=== PATIENT | female | born 1940 | race Caucasian/White ===

== ENCOUNTER 2016-08-06 16:41 | Emergency (ER) | payer MEDICARE ==
[2016-08-06 16:53] VITALS: RESP 18; TEMP 98.3
--- NOTE | 2016-08-06 17:25 | ED ---
General Adult HPI - General Chief complaint: Recheck/Abnormal Lab/Rx Stated complaint: Hypertension Time Seen by Provider: 08/06/16 16:47 Source: EMS, RN notes reviewed, old records reviewed Mode of arrival: EMS Limitations: no limitations - History of Present Illness Initial comments: This is a 76-year-old female ER for evaluation based patient is a for evaluation of eye episode of arm discomfort left chest discomfort and dizziness. This epidural playing cards today. Patient has no significant heart disease but does have history of elevated blood pressure. Patient's blood pressures morning and noted to be elevated which did concern her. But not greatly, she did play cards and had this episode of blurry vision and dizziness that resolved. Patient's R family doctor who then probably 7 to emergency room for further evaluation and treatment of her symptoms. Patient currently denies any complaints this time no chest pain or shortness of breath and no headache. This blurry vision is resolved and she is no longer nauseous or dizzy - Related Data Home Medications Medication Instructions Recorded Confirmed Aspirin 81 mg PO DAILY 08/06/16 08/06/16 Atenolol [Tenormin] 25 mg PO DAILY 08/06/16 08/06/16 Atorvastatin Calcium [Lipitor] 40 mg PO HS 08/06/16 08/06/16 Calcium Carbonate [Calcium] 600 mg PO BID 08/06/16 08/06/16 Dorzolamide/Timolol/Pf [Cosopt Pf 1 applicator BOTH EYES 08/06/16 2%/5% Ophth Droperette] Fish Oil/Dha/Epa [Fish Oil 1,200 1 cap PO DAILY 08/06/16 08/06/16 mg Fish Oil] Glucosam/Chond/Hyalu/Cf Borate 1 tab PO DAILY 08/06/16 08/06/16 [Move Free Joint Aniways Tablet] Latanoprost Ophth [Xalatan 0.005%] 1 drops BOTH EYES HS 08/06/16 08/06/16 Loratadine [Claritin] 10 mg PO DAILY PRN 08/06/16 08/06/16 Meloxicam [Mobic] 7.5 mg PO BID 08/06/16 08/06/16 Moexipril/Hydrochlorothiazide 1 tab PO DAILY 08/06/16 08/06/16 [Uniretic 15-12.5 mg Tab] Multivitamins, Thera [Multivitamin] 1 tab PO DAILY 08/06/16 08/06/16 amLODIPine [Norvasc] 5 mg PO DAILY 08/06/16 08/06/16 Allergies Allergy/AdvReac Type Severity Reaction Status Date / Time amoxicillin Allergy Rash/Hives Verified 08/06/16 17:14 Penicillins Allergy Rash/Hives Verified 08/06/16 16:53 Sulfa (Sulfonamide Allergy Rash/Hives Verified 08/06/16 17:14 Antibiotics) Review of Systems ROS Statement: Those systems with pertinent positive or pertinent negative responses have been documented in the HPI. ROS Other: All systems not noted in ROS Statement are negative. Past Medical History Past Medical History: Hypertension History of Any Multi-Drug Resistant Organisms: None Reported Past Surgical History: Orthopedic Surgery Past Psychological History: No Psychological Hx Reported Smoking Status: Never smoker Past Alcohol Use History: None Reported Past Drug Use History: None Reported General Exam Limitations: no limitations General appearance: alert, in no apparent distress Head exam: Present: atraumatic, normocephalic, normal inspection Eye exam: Present: normal appearance, PERRL, EOMI. Absent: scleral icterus, conjunctival injection, periorbital swelling ENT exam: Present: normal exam, mucous membranes moist Neck exam: Present: normal inspection. Absent: tenderness, meningismus, lymphadenopathy Respiratory exam: Present: normal lung sounds bilaterally. Absent: respiratory distress, wheezes, rales, rhonchi, stridor Cardiovascular Exam: Present: regular rate, normal rhythm, normal heart sounds. Absent: systolic murmur, diastolic murmur, rubs, gallop, clicks GI/Abdominal exam: Present: soft, normal bowel sounds. Absent: distended, tenderness, guarding, rebound, rigid Extremities exam: Present: normal inspection, full ROM, normal capillary refill. Absent: tenderness, pedal edema, joint swelling, calf tenderness Back exam: Present: normal inspection Neurological exam: Present: alert, oriented X3, CN II-XII intact Psychiatric exam: Present: normal affect, normal mood Skin exam: Present: warm, dry, intact, normal color. Absent: rash Course Vital Signs 08/06/16 08/06/16 16:44 17:21 Temperature 98.3 F Pulse Rate 78 Respiratory 18 Rate Blood Pressure 159/102 168/72 O2 Sat by Pulse 95 Oximetry - Reevaluation(s) Reevaluation #1: 08/06/16 17:23 Patient remains asystematic and without complaint EKG Findings - EKG Comments: EKG Findings:: EKG shows normal sinus rhythm rate of 70, CT 186, QRS 76, QTC 455 Medical Decision Making - Medical Decision Making 76 year for evaluation of nonspecific symptoms, elevated blood pressure and dizziness. There resolved remain resolved, patient EKG and troponin are negative, patient states she still continues without complaints, blood pressures improved to patient can be discharged home - Radiology Data Radiology results: report reviewed (Chest x-ray is negative for acute disease), image reviewed Disposition Clinical Impression: Dizziness, Hypertension Disposition: HOME SELF-CARE Condition: Good Instructions: Dizziness (ED) Referrals: Latricia Tovar MD [Primary Care Provider] - 1-2 days
[2016-08-06 17:50] LABS: Basophils % (A) 1 %; CH 32.1; CHCM 34.1; Eosinophils # (A) 0.4 k/uL (0-0.7); Eosinophils % (A) 5 %; HCT 45.5 % (34.0-46.0); HDW 2.57; HGB 14.9 gm/dL (11.4-16.0); Luc # (Auto) 0.16; Luc % (Auto) 2; Lymphocytes # (A) 3.2 k/uL (1.0-4.8); Lymphocytes % (A) 40 %; MCH 31.1 pg (25.0-35.0); MCHC 32.8 g/dL (31.0-37.0); MCV 94.6 fL (80.0-100.0); Mean Platelet Volume 7.6; Monocytes # (A) 0.5 k/uL (0-1.0); Monocytes % (A) 6 %; Neutrophils # (A) 3.8 k/uL (1.3-7.7); Neutrophils % (A) 47 %; RBC 4.81 m/uL (3.80-5.40); RDW 12.6 % (11.5-15.5); WBC (Perox) 7.88
--- NOTE | 2016-08-06 17:52 | XR ---
EXAMINATION TYPE: XR chest 2V DATE OF EXAM: 08/06/2016 5:47 PM COMPARISON: 10/23/2012 HISTORY: Hypertension TECHNIQUE: Frontal and lateral views of the chest are obtained. FINDINGS: Heart is normal. Lungs are clear of consolidation. There are no hilar masses. There are ch est leads. There is no sign of pleural effusion. There is a small linear density in the lingula left upper lobe. IMPRESSION: Minimal scarring in the lingula of the left upper lobe. No acute lung disease. Normal he art. No change.
[2016-08-06 17:59] LABS: Partial Thromboplastin Time 22.4 sec (22.0-30.0); Prothrombin Time 10.3 sec (9.0-12.0)
[2016-08-06 18:03] LABS: Creatine Kinase 181 U/L (30-135)
[2016-08-06 18:05] LABS: Calcium 9.8 mg/dL (8.4-10.2); Magnesium 1.9 mg/dL (1.6-2.3); Potassium 3.9 mmol/L (3.5-5.1); Total Bilirubin 0.6 mg/dL (0.2-1.3); Total Protein 7.2 g/dL (6.3-8.2)
[2016-08-06] MEDS ORDERED: SODIUM CHLORIDE 0.9% 500 ML IV STA (18:14)
[2016-08-06 18:15] LABS: Creatine Kinase MB 1.8 ng/mL (0.0-2.4); Troponin I <0.012 ng/mL (0.000-0.034)
[2016-08-06 18:16] VITALS: PULSE 68
[2016-08-06 18:59] VITALS: BP 146/67
== END 2016-08-06 19:03 | disposition home or self-care (01) ==
LOC: EC 16:41
DX: R42 Dizziness and giddiness (principal); I10 Essential (primary) hypertension; R07.89 Other chest pain; Z79.82 Long term (current) use of aspirin; Z79.899 Other long term (current) drug therapy; Z88.0 Allergy status to penicillin; Z88.2 Allergy status to sulfonamides
CPT/HCPCS: 36415; 71020; 80053; 82550; 82553; 83690; 83735; 84484; 85025; 85610; 85730; 93005; 96360; 99285

== ENCOUNTER → 2017-01-22 | Outpatient (CLI) | payer MEDICARE ==
--- NOTE | 2017-01-23 08:12 | MM ---
Reason for exam: screening (asymptomatic). Last mammogram was performed 1 year ago. History: Patient is postmenopausal. Took hormonal contraceptives beginning at age 32. Took estrogen beginning at age 53. Physical Findings: A clinical breast exam by your physician is recommended on an annual basis and results should be correlated with mammographic findings. MG 3D Screening Mammo W/Cad Bilateral CC and MLO view(s) were taken. Prior study comparison: January 08, 2016, bilateral MG 3d screening mammo w/cad. January 16, 2015, left breast MG work up mamm w CAD LT. The breast tissue is heterogeneously dense. This may lower the sensitivity of mammography. Finding: There are typically benign vascular, round calcifications in both breasts. There is a chronic nodularity in the left breast. There is no discrete abnormality. ASSESSMENT: Benign, BI-RAD 2 RECOMMENDATION: Routine screening mammogram of both breasts in 1 year.
== END | disposition home or self-care (01) ==
LOC: RADMAMWWP 15:12
PROVIDERS: ATTEND Internal Medicine
DX: Z12.31 Encounter for screening mammogram for malignant neoplasm of breast (principal)
CPT/HCPCS: 77063; G0202

== ENCOUNTER → 2017-03-18 | Outpatient (CLI) | payer MEDICARE ==
--- NOTE | 2017-03-18 16:33 | CONS ---
CONSULTATION REASON FOR CONSULTATION: Sleep apnea. REFERRING PHYSICIAN: Dr. Mai. PRIMARY CARE PHYSICIAN: Dr. Tovar. This is a 76-year-old female patient who was referred for a sleep apnea evaluation. The patient has been having excessive fatigue and some degree of sleepiness with an Delta score of 9. She reports her sleep quality to be poor and she wakes up at least 4 to 5 times in the middle of the night. She goes to bed around midnight and she wakes up at 9:00 in the morning. She sleeps more than 8 hours per night; however, she wakes up non-refreshed during the day. She is driving a car. She has not fallen asleep while driving, although this is a concern. On one occasion the patient felt foggy and dizzy, and she had a complete cardiac evaluation and was not found to have any significant abnormalities. Based on this, sleep apnea was suspected. The patient denies having to wake up in the middle of the night gasping for air. No restlessness in the lower extremities. No sleepwalking or sleeptalking. She wakes up with a dry mouth. She prefers to sleep on her side. She is a nose-breather. No environmental allergies. PAST MEDICAL HISTORY: 1. Obesity. 2. Hypertension. 3. Hyperlipidemia. 4. Glaucoma. PAST SURGICAL HISTORY: Past surgical history includes: 1. Right hip hemiarthroplasty. 2. Cataract surgery. ALLERGIES: PENICILLINS. OUTPATIENT MEDICATION LIST: Outpatient medication list includes: 1. Atenolol 25 mg p.o. daily. 2. Norvasc 5 mg p.o. daily. 3. Meloxicam 7.5 mg twice a day. 4. Moexipril/hydrochlorothiazide 15/12.5 one tablet daily. 5. Lipitor 80 mg p.o. daily. 6. Latanoprost eye drops. 7. Dorzolamide eye drops. 8. Loratadine 10 mg p.o. daily. 9. Calcium. 10.Glucosamine chondroitin. SOCIAL HISTORY: The patient is nonsmoker. No history of alcoholism. No history of IV drugs. FAMILY HISTORY: Positive for obstructive sleep apnea in her brother and her son. REVIEW OF SYSTEMS: Twelve-point review of systems was done. Constitutional is negative for recent weight gain or weight loss. No fever, chills or night sweats. HEENT: Loud snoring. No clear evidence of any witnessed apneas. No hearing deficits. She receives eye drops for glaucoma. CARDIAC: No angina. No palpitations. No chest pain. PULMONARY: Negative for dyspnea, cough, sputum production, chest tightness or wheezing. GI: Negative nausea, vomiting, abdominal pain or GI bleed. is negative for dysuria, frequency, urgency. MUSCULOSKELETAL: Negative for arthritic pain or deformities. Skin is negative for rash. Neuro is negative for any strokes, seizures or seizure-like activity. Rheumatologic is negative for chronic ( ) disease. Endocrinologic is negative for any diabetes mellitus or any other hormonal imbalance. PHYSICAL EXAMINATION: HER CURRENT VITALS: BP is 140/71, pulse 75, respiratory rate 16, temperature 97.6, saturation 96% on room air. Delta score 10. BMI is 42.5, next size 16-1/2 inches. Weight is 225.6. Height is 6 (). GENERAL APPEARANCE: Obese, calm, comfortable. HEENT: Mallampati class 4. Head is atraumatic, normocephalic. NECK: Supple. No JVD. No goiter or neck masses. LUNGS: Clear to auscultation. HEART: Sounds are regular rate and rhythm. Normal S1, S2. No S3. No S4. No murmurs. ABDOMEN: Soft, nontender. No organomegaly. EXTREMITIES: No edema. No cyanosis or clubbing. Skin is negative for any rash, ulcers or wounds. NEURO: Oriented x3. There are no focal neurological deficits. SKELETAL: No injuries or joint deformities or active arthritis. IMPRESSION: 1. Chronic fatigue and sleepiness with an Delta score of 9. Rule out underlying obstructive sleep apnea. 2. Loud snoring. 3. Questionable witnessed apneas. 4. Hypertension. 5. Obesity with a BMI 42.5. 6. Hyperlipidemia. 7. Glaucoma. 8. Hypertension. PLAN: 1. Proceed with a screening polysomnogram. 2. Encouraged to sleep in a sidewise body position. 3. Avoid driving, especially when feeling drowsy or sleepy. 4. Implement good sleep hygiene measures. 5. We will continue to follow and make further recommendations based on the results of the sleep study. MMODL / IJN: [id number] /
== END | disposition home or self-care (01) ==
LOC: SLEEP 13:54
PROVIDERS: ATTEND Internal Medicine Critical Care Medicine
DX: R53.82 Chronic fatigue, unspecified (principal); R06.83 Snoring; I10 Essential (primary) hypertension; E66.9 Obesity, unspecified; E78.5 Hyperlipidemia, unspecified; H40.9 Unspecified glaucoma; Z68.41 Body mass index [BMI] 40.0-44.9, adult; Z88.0 Allergy status to penicillin
CPT/HCPCS: 99211

== ENCOUNTER → 2017-08-05 | Outpatient (CLI) | payer MEDICARE ==
--- NOTE | 2017-08-05 18:18 | PN ---
PROGRESS NOTE This is a pleasant 77-year-old female patient with diagnosis of obstructive sleep apnea coming in for a compliancy check. The patient had sleep fragmentation, chronic fatigue and sleepiness. She was found to have an AHI of 11, worse during REM. She was given CPAP at a pressure of 10 cm of water. On today's evaluation, the patient is coming in for a compliancy check. She is doing very well. She has improved and her sleep quality is also improved and she is benefitting from the treatment. She has no specific complaints. Her CPAP compliancy data indicate adequate use with a CPAP use of 6.8 hours per night and an AHI down to 5. She is using the CPAP for more than 4 hours more than 90% of the time. She is using an AirFit P10 nose pillow. No leaks around the mask and her leak factor is minimal at this point. She has no other complaints otherwise. REVIEW OF SYSTEMS: Twelve-point review of systems was done. No recent weight gain or weight loss. No headache. No sinus disease. She is a nose breather. No sore throat. No respiratory difficulties. No cough or sputum production, tightness or wheezing. No chest pain or angina. No palpitations. No nausea, vomiting, diarrhea or abdominal pain. No dysuria, frequency or urgency. No bony aches or pains. No wounds or sores. No headaches. No seizures. No focal neurological deficits. No change in mental status. No anxiety or depression. PHYSICAL EXAMINATION: BP is 145/76, pulse 76, respirations 16, temperature 97.1. Weight is 221. [place] score is 7. Saturation 94% on room air. GENERAL APPEARANCE: Calm, comfortable. Head is atraumatic, normocephalic. NECK: Supple. There is no JVD. No goiter or neck masses. Mallampati class IV. LUNGS: Clear to auscultation. HEART: Sounds are regular rate and rhythm. Normal S1, S2. No S3, S4. No murmurs. ABDOMEN: Soft, nontender. No organomegaly. EXTREMITIES: No edema. No cyanosis or clubbing. SKIN: Negative for wounds or ulcers. NEUROLOGIC: Alert and oriented x3. No focal neurological deficits. PSYCHIATRIC: Negative for anxiety or depression. IMPRESSION: 1. Symptomatic obstructive sleep apnea with an AHI of 11, currently receiving CPAP therapy at a pressure of 10, and the treatment is successful. 2. Chronic hypersomnia, improved with CPAP therapy. 3. Sleep fragmentation, improved with CPAP therapy. 4. Hypertension. 5. Hyperlipidemia. 6. Glaucoma. PLAN: 1. Increase the humidity level up to 4. 2. Provide the patient needed tubing. 3. Reviewed the compliance data and values are all good. 4. Patient is benefitting from the treatment. She will continue with her primary care physician and Cardiology and see me in a year's time in follow up, earlier if needed. MMODL / IJN: [id number] /
== END | disposition home or self-care (01) ==
LOC: SLEEP 16:47
PROVIDERS: ATTEND Internal Medicine Critical Care Medicine
DX: G47.33 Obstructive sleep apnea (adult) (pediatric) (principal); I10 Essential (primary) hypertension; E78.5 Hyperlipidemia, unspecified; H40.9 Unspecified glaucoma; Z99.89 Dependence on other enabling machines and devices

== ENCOUNTER → 2018-01-26 | Outpatient (CLI) | payer MEDICARE ==
--- NOTE | 2018-01-28 11:55 | MM ---
Reason for exam: screening (asymptomatic). Last mammogram was performed 1 year ago. History: Patient is postmenopausal. Took hormonal contraceptives beginning at age 32. Took estrogen beginning at age 53. Physical Findings: A clinical breast exam by your physician is recommended on an annual basis and results should be correlated with mammographic findings. MG 3D Screening Mammo W/Cad Bilateral CC and MLO view(s) were taken. Prior study comparison: January 22, 2017, bilateral MG 3d screening mammo w/cad. January 08, 2016, bilateral MG 3d screening mammo w/cad. The breast tissue is heterogeneously dense. This may lower the sensitivity of mammography. There is chronic nodularity in the left breast. Benign secretory and vascular calcifications. No significant changes when compared with prior studies. ASSESSMENT: Benign, BI-RAD 2 RECOMMENDATION: Routine screening mammogram of both breasts in 1 year.
== END | disposition home or self-care (01) ==
LOC: RADMAMWWP 12:52
PROVIDERS: ATTEND Internal Medicine
DX: Z12.31 Encounter for screening mammogram for malignant neoplasm of breast (principal)
CPT/HCPCS: 77063; 77067

== ENCOUNTER → 2018-01-26 | Outpatient (CLI) | payer MEDICARE ==
[2018-01-26 14:16] LABS: Ionized Calcium 5.5 mg/dL (4.5-5.3)
[2018-01-26 14:18] LABS: Bilirubin, Delta 0.2 mg/dL (0.0-0.2); Bilirubin,Unconjugated 0.2 mg/dL (0.0-1.1); Total Bilirubin 0.4 mg/dL (0.2-1.3); Total Protein 6.6 g/dL (6.3-8.2)
[2018-01-26 18:33] LABS: Vitamin D 25 Hydroxy 38.7 ng/mL (30.0-100.0)
[2018-01-26 19:32] LABS: Parathyroid Hormone Intact 29.8 pg/mL (14.0-72.0)
[2018-01-26 19:33] LABS: Hepatitis C IgG Antibody Non-Reactive (Non-Reactive)
[2018-01-26 21:24] LABS: Hemoglobin A1C 6.2 % (4.0-6.0)
== END | disposition home or self-care (01) ==
LOC: LABWHC1 13:15
PROVIDERS: ATTEND Internal Medicine
DX: E83.52 Hypercalcemia (principal)
CPT/HCPCS: 36415; 80076; 82306; 82330; 83036; 83970; 86803

== ENCOUNTER → 2019-02-04 | Outpatient (CLI) | payer MEDICARE ==
--- NOTE | 2019-02-04 14:46 | MM ---
Reason for exam: screening (asymptomatic). Last mammogram was performed 1 year ago. History: Patient is postmenopausal. Took hormonal contraceptives beginning at age 32. Took estrogen beginning at age 53. Physical Findings: A clinical breast exam by your physician is recommended on an annual basis and results should be correlated with mammographic findings. MG 3D Screening Mammo W/Cad Bilateral CC and MLO view(s) were taken. Prior study comparison: January 26, 2018, bilateral MG 3d screening mammo w/cad. January 22, 2017, bilateral MG 3d screening mammo w/cad. The breast tissue is heterogeneously dense. This may lower the sensitivity of mammography. There are benign appearing round linear vascular calcifications bilaterally. There is no discrete abnormality. ASSESSMENT: Benign, BI-RAD 2 RECOMMENDATION: Routine screening mammogram of both breasts in 1 year.
== END | disposition home or self-care (01) ==
LOC: RADMAMWWP 09:47
PROVIDERS: ATTEND Internal Medicine
DX: Z12.31 Encounter for screening mammogram for malignant neoplasm of breast (principal)
CPT/HCPCS: 77063; 77067

== ENCOUNTER → 2020-02-11 | Outpatient (CLI) | payer MEDICARE ==
--- NOTE | 2020-02-15 08:50 | MM ---
Reason for exam: screening (asymptomatic). Last mammogram was performed 1 year ago. History: Patient is postmenopausal. Took hormonal contraceptives beginning at age 32. Took estrogen beginning at age 53. Physical Findings: A clinical breast exam by your physician is recommended on an annual basis and results should be correlated with mammographic findings. MG 3D Screening Mammo W/Cad Bilateral CC and MLO view(s) were taken. Prior study comparison: February 04, 2019, bilateral MG 3d screening mammo w/cad. January 26, 2018, bilateral MG 3d screening mammo w/cad. The breast tissue is heterogeneously dense. This may lower the sensitivity of mammography. There is chronic nodularity in the left breast. Benign bilateral secretory calcifications. No significant changes when compared with prior studies. ASSESSMENT: Benign, BI-RAD 2 RECOMMENDATION: Routine screening mammogram of both breasts in 1 year.
== END | disposition home or self-care (01) ==
LOC: RADMAMWWP 12:26
PROVIDERS: ATTEND Internal Medicine
DX: Z12.31 Encounter for screening mammogram for malignant neoplasm of breast (principal)
CPT/HCPCS: 77063; 77067

== ENCOUNTER → 2021-02-16 | Outpatient (CLI) | payer MEDICARE ==
--- NOTE | 2021-02-20 08:18 | MM ---
Reason for exam: screening (asymptomatic). Last mammogram was performed 1 year ago. History: Patient is postmenopausal. Took hormonal contraceptives beginning at age 32. Took estrogen beginning at age 53. Physical Findings: A clinical breast exam by your physician is recommended on an annual basis and results should be correlated with mammographic findings. MG 3D Screening Mammo W/Cad Bilateral CC and MLO view(s) were taken. Prior study comparison: February 11, 2020, bilateral MG 3d screening mammo w/cad. February 04, 2019, bilateral MG 3d screening mammo w/cad. January 26, 2018, bilateral MG 3d screening mammo w/cad. The breast tissue is heterogeneously dense. This may lower the sensitivity of mammography. There is chronic nodularity in the left breast. Stable benign vascular and secretory calcifications. No significant changes when compared with prior studies. ASSESSMENT: Negative, BI-RAD 1 RECOMMENDATION: Routine screening mammogram of both breasts in 1 year.
== END | disposition home or self-care (01) ==
LOC: RADMAMWWP 14:39
PROVIDERS: ATTEND Internal Medicine
DX: Z12.31 Encounter for screening mammogram for malignant neoplasm of breast (principal)
CPT/HCPCS: 77063; 77067

== ENCOUNTER → 2023-02-21 | Outpatient (CLI) | payer MEDICARE ==
--- NOTE | 2023-02-24 11:39 | MM ---
Reason for Exam: Screening (asymptomatic). Last screening mammogram was performed 12 month(s) ago. Patient History: Menarche at age 14. First Full-Term at age 25. Postmenopausal. Estrogen, from age 53 until age 56. Hormonal Contraceptives, from age 32 until age 53. Risk Values: Allegra 5 year model risk: 1.4%. NCI Lifetime model risk: 2.1%. Prior Study Comparison: 01/22/2017 Bilateral Screening Mammogram, [facility]. 01/26/2018 Bilateral Screening Mammogram, [facility]. 02/04/2019 Bilateral Screening Mammogram, [facility]. 02/11/2020 Bilateral Screening Mammogram, [facility] 02/16/2021 Bilateral Screening Mammogram, [facility]. 02/20/2022 Bilateral MG 3D screening mammo w/cad, [facility]. Tissue Density: The breast tissue is heterogeneously dense. This may lower the sensitivity of mammography. Findings: Analyzed By CAD. There is no suspicious group of microcalcifications or new suspicious mass in either breast. Overall Assessment: Negative, BI-RAD 1 Management: Screening Mammogram of both breasts in [address] [facility] will attempt to contact patient to return for supplemental views and ultrasound if indicated. Patient should continue monthly self-breast exams. A clinical breast exam by your physician is recommended on an annual basis. This exam should not preclude additional follow-up of suspicious palpable abnormalities. Note on Allegra scores and lifetime risk: 1. A Allegra score greater than 3% is considered moderate risk. If this is the case, consider specialist referral to assess eligibility for a risk reducing agent. 2. If overall lifetime risk for the development of breast cancer is 20% or higher, the patient may qualify for future screening with alternating mammogram and breast MRI. Electronically signed and approved by: Olivier Renae DO
== END | disposition home or self-care (01) ==
LOC: RADMAMWWP 09:55
PROVIDERS: ATTEND Internal Medicine
DX: Z12.31 Encounter for screening mammogram for malignant neoplasm of breast (principal); Z78.0 Asymptomatic menopausal state
CPT/HCPCS: 77063; 77067

== ENCOUNTER → 2023-08-25 | Outpatient (CLI) | payer MEDICARE ==
--- NOTE | 2023-08-25 16:57 | BD ---
EXAMINATION TYPE: Axial Bone Density DATE OF EXAM: 08/25/2023 CLINICAL HISTORY: 83 years old Female. ICD-10 CODE: N95.8 OTHER SPECIFIED MENOPAUSAL AND PERIMENOPAU GEORGI Height: 60 Weight: 206 FRAX RISK QUESTIONS: Alcohol (3 or more units per day): no Family History (Parent hip fracture): yes Glucocorticoids (More than 3mos): no (Ex: prednisone, prednisolone, methylprednisolone, dexamethasone, and hydrocortisone). History of Fracture in Adulthood: no Secondary Osteoporosis: 1. Type 1 Diabetes: no 2. Hyperthyroidism: no 3. Menopause before 45: no 4. Malnutrition: no 5. Chronic liver disease: no Rheumatoid Arthritis: no Current Tobacco Use: no RISK FACTORS HISTORY OF: Surgery to Spine/Hip(right/left)/Wrist (right/left): right hip-2008 EXAM MEASUREMENTS: Bone mineral densitometry was performed using the Supersolid System. Bone mineral density as measured about the Lumbar spine is: ----- L1-L4(G/cm2): 1.420 T Score Values are as follows: ----- L1: 0.6 ----- L2: 0.7 ----- L3: 1.9 ----- L4: 4.9 ----- L1-L4: 2.0 Z Score Values are as follows: ----- L1: 1.5 ----- L2: 1.6 ----- L3: 2.8 ----- L4: 5.8 ----- L1-L4: 2.9 Bone mineral density : baseline Bone mineral density about the L hip (g/cm2): 1.085 T Score values are as follows: -----L Neck: -1.0 -----L Total: 0.6 Z Score values are as follows: -----L Neck: 0.6 -----L Total: 2.1 Bone mineral density : baseline FRAX%s: The graph provided illustrates a 17.2% chance for a major osteoporotic fx and a 8.7% chance f or the hips probability for fx in 10 years time. IMPRESSION: Normal (Values between +1 and -1 indicate normal bone mass). Consider repeating this study in 5 year s or sooner if there is some new clinical indication. NOTE: T-SCORE=SD OF THE YOUNG ADULT MEAN.
== END | disposition home or self-care (01) ==
LOC: RADBDWWP 14:21
PROVIDERS: ATTEND Internal Medicine
DX: M85.89 Other specified disorders of bone density and structure, multiple sites (principal); M81.0 Age-related osteoporosis without current pathological fracture; N95.8 Other specified menopausal and perimenopausal disorders
CPT/HCPCS: 77080

== ENCOUNTER → 2023-11-27 | Outpatient (CLI) | payer MEDICARE ==
--- NOTE | 2023-11-27 18:46 | US ---
EXAMINATION TYPE: US transvaginal DATE OF EXAM: 11/27/2023 COMPARISON: NONE CLINICAL INDICATION: Female, 83 years old with history of N95.0 POSTMENOPAUSAL BLEEDING; Pt states li ght vaginal spotting x 2 weeks TECHNIQUE: Transvaginal (TV). Transvaginal sonographic images of the pelvis were acquired. Date of LMP: age 51 EXAM MEASUREMENTS: Uterus: 6.2 x 2.4 x 2.6 cm Endometrial Stripe: 0.7 cm 1. Uterus: Anteverted Heterogeneous with peripheral calcifications 2. Endometrium: Thickened for pt postmenopausal and symptomatic, possible complex area within lower endometrial canal= 1.3 x 0.9 x 1.2 cm 3. Right Ovary: Obscured by overlying bowel gas 4. Left Ovary: Obscured by overlying bowel gas 5. Bilateral Adnexa: wnl 6. Posterior cul-de-sac: wnl IMPRESSION: 1. Mildly thickened endometrium with a slightly more complex area within the lower endometrial canal. Additional workup recommended
== END | disposition home or self-care (01) ==
LOC: RADUSWWP 16:10
PROVIDERS: ATTEND Internal Medicine
DX: R93.89 Abnormal findings on diagnostic imaging of other specified body structures (principal); N95.0 Postmenopausal bleeding
CPT/HCPCS: 76830

== ENCOUNTER → 2023-12-02 | Outpatient (CLI) | payer MEDICARE ==
[2023-12-02 13:46] LABS: African American GFR (CKD) 69 (>60 ml/min/1.73 sqM); Blood Urea Nitrogen 16 mg/dL (7-17); Non-African American GFR(CKD) 60 (>60 ml/min/1.73 sqM)
--- NOTE | 2023-12-03 20:20 | CT ---
EXAMINATION TYPE: CT pelvis w con DATE OF EXAM: 12/02/2023 COMPARISON: None CLINICAL INDICATION: Female, 83 years old with history of N95.8 OTHER MENOPAUSAL PERIMENOPAUSAL DISOR DERS; Technique: Multiple axial images are obtained through the pelvis during the uneventful administration of oral and IV contrast material. FINDINGS: Visualized bowel loops are normal in caliber and there is no dilatation or obstruction. Caliber of th e distal abdominal aorta and iliac vessels are normal and there is no retroperitoneal adenopathy or h emorrhage. There are no pelvic mass, adenopathy, free fluid or abscess. There is a right hip prosthesis. No focal osseous lesions are seen. There is a grade 1 anterolisthesis of L4 and L5 and moderate to marked degenerative disc disease in t he lumbar spine. There is probable moderate to severe spinal stenosis at the L to 3, L3-4 and L4-5 le vels. IMPRESSION: 1. 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 2. Right hip prosthesis. 3. No significant abnormality within the soft tissues of the pelvis.
== END | disposition home or self-care (01) ==
LOC: RADCTMAIN 12:29
PROVIDERS: ATTEND Internal Medicine
DX: M48.061 Spinal stenosis, lumbar region without neurogenic claudication (principal); M51.36 Other intervertebral disc degeneration, lumbar region; N95.8 Other specified menopausal and perimenopausal disorders; Z78.0 Asymptomatic menopausal state; Z96.641 Presence of right artificial hip joint
CPT/HCPCS: 82565; 84520; 72193; 36415; Q9967

== ENCOUNTER → 2023-12-09 | Outpatient (CLI) | payer MEDICARE ==
--- NOTE | 2023-12-12 11:40 | XR ---
EXAMINATION TYPE: XR cervical spine comp DATE OF EXAM: 12/09/2023 4:06 PM CLINICAL INDICATION:Female, 83 years old with history of M542 CERVICALGIA; [facility] COMPARISON: TECHNIQUE: The cervical spine was imaged in frontal, lateral, and bilateral oblique views. FINDINGS: Craniocervical junction and odontoid are not well assessed on these views. Cannot exclude fracture in these areas. There is otherwise mild to moderate multilevel discogenic change in the cervical spine greatest from the C4-C7 levels. Mild facet arthrosis throughout. Trace anterolisthesis C4 on C5 appea rs degenerative. Remote fractures versus ununited ossification centers seen posterior to the spinous process tips in t he lower cervical/upper thoracic region. There are [id number] multilevel neural foraminal stenoses suggested. No appreciable prevertebral soft tissue thickening. If clinical concern persists, CT or MRI may be obtained as indicated for further evaluation. IMPRESSION: 1. No evidence of acute fracture or dislocation. 2. Mild to moderate degenerative disc disease changes of the cervical spine.
== END | disposition home or self-care (01) ==
LOC: RADXRYALE 15:53
PROVIDERS: ATTEND Internal Medicine
DX: M50.30 Other cervical disc degeneration, unspecified cervical region (principal)
CPT/HCPCS: 72050

== ENCOUNTER → 2023-12-25 | Outpatient (CLI) | payer MEDICARE ==
--- NOTE | 2023-12-25 21:04 | MR ---
EXAMINATION TYPE: MR cspine/lspine wo con DATE OF EXAM: 12/25/2023 COMPARISON: Cervical spine x-ray December 09, 2023. Outside lumbar spine x-ray November 06, 2023 HISTORY: Numbness in hands to shoulders x3-4 weeks. Cervicalgia and lumbago. TECHNIQUE: Multiplanar, multisequence imaging of the cervical and lumbar spine are performed without IV contrast. FINDINGS: C-SPINE: Sagittal images of the cervical spine show the craniocervical junction to appear within normal limits . The cervical and upper thoracic spinal cord shows areas of diminished AP diameter most prominent a t C3-C4 level on sagittal image 10. No definitive abnormal cord signal. Slight grade 1 anterolisthes is C4 on C5. The vertebral body heights are normal. Moderate disc space narrowing and spurring at C5 -C6 and C6-C7 levels. The bone marrow signal intensity is within normal limits. Axial images show C2-C3 level to appear within normal limits. Axial images at C3-C4 level shows central disc protrusion effacing anterior thecal sac and causing AP diameter narrowing of the spinal cord along with moderate bilateral neural foraminal narrowing. Axial images at C4-C5 levels show spondylolisthesis with broad-based posterior disc protrusion efface s the anterior thecal sac and uncovertebral facet degenerative changes causing moderate to advanced l eft greater than right bilateral neural foraminal narrowing. Axial images at C5-C6 level showed broad based posterior disc protrusion effaces the anterior thecal sac and causing moderate to advanced bilateral neural foraminal narrowing. Axial images at C6-C7 level showed broad disc bulge with left paracentral disc protrusion component f acing anterior thecal sac and causing advanced bilateral neural foraminal narrowing. Axial images at C7-T1 are nondiagnostic. IMPRESSION: Multilevel fairly advanced degenerative changes in the cervical spine as detailed above. L-SPINE: There is levoconvex scoliosis centered in the lower lumbar spine. There is slight grade 1 retrolisthe sis L2 on L3 and grade 1 anterolisthesis L4 and L5 noted. Sagittal images of the lumbar spine show ve rtebral body heights and to appear satisfactory. Multilevel disc desiccation is seen. There is modera te disc space narrowing and spurring with heterogeneous Modic type II endplate changes at L2-L3 and L 3-L4 levels. There is mild disc space narrowing and vacuum disc phenomenon at L4-L5 level. The conus medullaris is normal in position and signal ending at T12-L1 level. Axial images at T12-L1 level shows mild to moderate facet arthropathy bilaterally left greater than r ight with slight effacement of the left posterior lateral thecal sac. There is mild broad disc bulge. Axial images at L1-L2 level show moderate broad disc bulge with large left sided focal disc herniatio n having superior and inferior extension seen best sagittal image 10. There is advanced left-sided ne ural foraminal narrowing. Axial images at L2-L3 level shows spondylosis with moderate broad disc bulge effaces the anterior the kobi sac. There is moderate facet arthropathy effacing the bilateral lateral thecal sac. There is mil d right and advanced left-sided neural foraminal narrowing. Axial images at L3-L4 level show moderate to advanced broad disc bulge effacing anterior thecal sac. There is moderate to advanced facet arthropathy ligament flavum hypertrophy effacing posterior latera l thecal sac. Significant spinal canal stenosis and asymmetric 13 is noted. There is advanced left an d moderate right-sided neural foraminal narrowing noted. Axial images at L4-L5 level shows spondylosis with moderate to advanced right greater than left facet degenerative change. There is broad-based disc protrusion. There is effacement of the anterior theca l sac. There is moderate left and advanced right-sided neural foraminal narrowing. Axial images at the L5-S1 level show moderate facet arthropathy and ligament hypertrophy. There is fo kobi central disc protrusion. Increased epidural fat at this level is noted. Bilateral neural foramina are patent. IMPRESSION: Scoliosis with multilevel spondylolisthesis and multilevel degenerative change as detaile d above. Large disc herniation L1-L2 level is present. Multilevel bilateral advanced neural foraminal narrowing is seen as detailed above. There is significant spinal canal stenosis at L3-L4 also noted.
== END | disposition home or self-care (01) ==
LOC: RADMRIMAIN 17:20
PROVIDERS: ATTEND Orthopaedic Surgery
DX: M54.16 Radiculopathy, lumbar region (principal); M62.81 Muscle weakness (generalized); M54.2 Cervicalgia; M43.16 Spondylolisthesis, lumbar region; M47.812 Spondylosis without myelopathy or radiculopathy, cervical region; M47.816 Spondylosis without myelopathy or radiculopathy, lumbar region; M47.817 Spondylosis without myelopathy or radiculopathy, lumbosacral region; M48.061 Spinal stenosis, lumbar region without neurogenic claudication; M51.26 Other intervertebral disc displacement, lumbar region; M51.36 Other intervertebral disc degeneration, lumbar region; M41.9 Scoliosis, unspecified
CPT/HCPCS: 72141; 72148

== ENCOUNTER → 2024-01-19 | Outpatient (CLI) | payer MEDICARE ==
[2024-01-19 15:50] LABS: ALT 29 U/L (8-44); AST 28 U/L (13-35); Albumin 4.3 g/dL (3.8-4.9); Albumin/Globulin Ratio 1.43 Ratio (1.60-3.17); Alkaline Phosphatase 98 U/L (41-126); BUN/Creat Ratio 15.44 Ratio (12.00-20.00); Blood Urea Nitrogen 13.9 mg/dL (9.0-27.0); Calcium 10.6 mg/dL (8.7-10.3); Carbon Dioxide 27.9 mmol/L (21.6-31.8); Chloride 103 mmol/L (96-109); Glucose 123 mg/dL (70-110); Potassium 3.7 mmol/L (3.5-5.5); Sodium 144 mmol/L (135-145); Total Bilirubin 0.7 mg/dL (0.3-1.2); Total Protein 7.3 g/dL (6.2-8.2)
[2024-01-19 19:04] LABS: HCT 51.8 % (37.2-46.3); HGB 16.5 g/dL (12.0-15.0); MCH 30.6 pg (27.0-32.0); MCHC 31.9 g/dL (32.0-37.0); MCV 96.1 FL (80.0-97.0); Mean Platelet Volume 11.1 FL (9.5-12.2); NRBC Per 100 WBC 0 X 10*3/uL (0.00-0.01); Platelet Count 232 X 10*3/uL (140-440); RBC 5.39 X 10*6/uL (4.10-5.20); RDW 13.6 % (11.5-14.5)
[2024-01-19 19:09] LABS: INR 1.04 sec (0.93-1.11); Prothrombin Time 11.2 sec (9.9-11.9)
== END | disposition home or self-care (01) ==
LOC: LABPAT 11:29
PROVIDERS: ATTEND Orthopaedic Surgery
DX: Z01.812 Encounter for preprocedural laboratory examination (principal); M47.12 Other spondylosis with myelopathy, cervical region; Z79.01 Long term (current) use of anticoagulants; Z79.899 Other long term (current) drug therapy
CPT/HCPCS: 80053; 85027; 85610

== ENCOUNTER → 2024-02-03 | Outpatient (CLI) | payer MEDICARE ==
--- NOTE | 2024-03-05 13:40 | CT ---
EXAM: CT cervical spine without contrast. DATE OF EXAM: 02/03/24 INDICATION: Patient age:LUIS HUBER :1940 Reason for study: M54.2 Cervicalgia, COMPARISON: None. TECHNIQUE: Axial CT images from the skull base to the inferior aspect of T2 we obtained without intra venous contrast. Coronal and sagittal reformatted images were also reviewed. One or more CT dose redu ction strategies were utilized during this examination. Total DLP administered was 396.5 mGycm . FINDINGS: Fracture: None. Osseous structures: Multilevel degenerative disc disease changes with endplate spurring and disc oste ophyte complex's. Vertebral alignment: Within normal limits. Spinal canal/Neural Foramina: There is disc bulging with osteophytes with severe spinal canal stenosi s at C3-C4, C4-C5 and C5-C6, C6-C7. The neural foramen throughout these levels is also severely narro wed extending from C4-C5 C5-C6 and C6-C7. Neck soft tissues: Prevertebral soft tissues are within normal limits. Other: The airway is patent. The lung apices are clear. IMPRESSION: 1. No evidence of cervical spine fracture. 2. Moderate multilevel degenerative disc disease. 3. There is disc bulging with osteophytes with severe spinal canal stenosis at C3-C4, C4-C5 and C5-C6 , C6-C7. MRI recommended for further evaluation of the spine if not recently performed. 4. Severe neural foraminal stenosis from C4-C5 through C6-C7 bilaterally.
== END | disposition home or self-care (01) ==
LOC: RADCTMAIN 02-02 13:25
PROVIDERS: ATTEND Orthopaedic Surgery
DX: M54.12 Radiculopathy, cervical region
CPT/HCPCS: 72125

== ENCOUNTER 2024-02-09 12:30 | Inpatient (IN) | payer MEDICARE ==
[~2024-02-09 12:30] MED LIST: ACETAMINOPHEN TAB 500 MG TAB ONE; GABAPENTIN 300 MG CAP ONE; GLYCOPYRROLATE 0.2 MG/ML 2 ML VIAL ONE; KETAMINE HCL IN 0.9 % NACL 50 MG/5 ML SYRINGE ONE; LIDOCAINE 1% INJ 10MG/ML (20 ML MDV) ONE; MIDAZOLAM 2 MG/2 ML VIAL ONE; ONDANSETRON 4 MG/2 ML VIAL ONE; PHENYLEPHRINE 10 MG/ML VIAL ONE; PROPOFOL 10 MG/ML 20 ML VIAL IV ONE; ROCURONIUM 10 MG/ML (5 ML VIAL) IV ONE; SUCCINYLCHOLINE CHLORIDE 200 MG/10 ML VIAL IV ONE; TRANEXAMIC 1,000 MG/100ML-NACL PREMIX BAG ONE; fentaNYL (PF) 50 MCG/ML 2 ML AMP ONE
[2024-02-09] MEDS ORDERED: HYDROmorphone 0.5 MG/0.5 ML SYRINGE ONE ×2 (14:07→14:30)
[2024-02-09 14:26] LABS: Glucose,Whole Blood 117 mg/dL (70-110)
[2024-02-09] MEDS ORDERED: HYDROmorphone 1 MG/ML 1 ML SYRINGE ONE ×2 (21:09)
[2024-02-09] MEDS ORDERED: GABAPENTIN 300 MG CAP ONE (23:27)
[2024-02-10] MEDS ORDERED: HYDROcodone/APAP 5-325MG 1 EACH TAB ONE ×6 (03:24→14:30)
[2024-02-10] MEDS ORDERED: ACETAMINOPHEN TAB 325 MG TAB ONE ×6 (05:29→17:14)
[2024-02-10] MEDS ORDERED: CYCLOBENZAPRINE 5 MG TAB ONE (05:30)
[2024-02-10] MEDS ORDERED: HYDROmorphone 1 MG/ML 1 ML SYRINGE ONE ×4 (06:25→22:41)
[2024-02-10] MEDS ORDERED: ATORVASTATIN 20 MG TAB ONE (08:51)
[2024-02-10] MEDS ORDERED: CALCIUM CARBONATE 500 MG CHEWABLE PO ONE (08:51)
[2024-02-10] MEDS ORDERED: LOSARTAN 50 MG TAB ONE (08:52)
[2024-02-10] MEDS ORDERED: atenoloL 25 MG TAB ONE (08:52)
[2024-02-10] MEDS ORDERED: hydroCHLOROthiazide 12.5 MG CAP ONE (08:52)
[2024-02-10] MEDS ORDERED: MULTIVITAMINS, THERA 1 EACH TAB ONE (08:52)
[2024-02-10] MEDS ORDERED: HEPARIN SODIUM,PORCINE 5,000 UNIT/ML 1 ML VIAL ONE ×2 (08:53→22:41)
[2024-02-10] MEDS ORDERED: amLODIPine 5 MG TAB ONE (09:06)
[2024-02-11] MEDS ORDERED: ACETAMINOPHEN TAB 325 MG TAB ONE ×6 (00:18→19:32)
[2024-02-11] MEDS ORDERED: HYDROmorphone 1 MG/ML 1 ML SYRINGE ONE ×2 (03:44)
[2024-02-11] MEDS ORDERED: amLODIPine 5 MG TAB ONE (09:06)
[2024-02-11] MEDS ORDERED: ATORVASTATIN 20 MG TAB ONE (09:06)
[2024-02-11] MEDS ORDERED: atenoloL 25 MG TAB ONE (09:07)
[2024-02-11] MEDS ORDERED: SENNOSIDES-DOCUSATE SODIUM 1 EACH TAB PO ONE ×2 (09:07)
[2024-02-11] MEDS ORDERED: LOSARTAN 50 MG TAB ONE (09:07)
[2024-02-11] MEDS ORDERED: MULTIVITAMINS, THERA 1 EACH TAB ONE (09:07)
[2024-02-11] MEDS ORDERED: HEPARIN SODIUM,PORCINE 5,000 UNIT/ML 1 ML VIAL ONE (09:08)
[2024-02-11] MEDS ORDERED: HYDROcodone/APAP 5-325MG 1 EACH TAB ONE ×4 (09:08→14:05)
[2024-02-11] MEDS ORDERED: CALCIUM CARBONATE 500 MG CHEWABLE PO ONE (19:32)
[2024-02-11] MEDS ORDERED: HYDROcodone/APAP 10-325MG 1 EACH TAB ONE ×2 (22:58)
[2024-02-12] MEDS ORDERED: ACETAMINOPHEN TAB 325 MG TAB ONE ×8 (02:12→17:28)
[2024-02-12] MEDS ORDERED: CALCIUM CARBONATE 500 MG CHEWABLE PO ONE ×4 (05:54→18:19)
[2024-02-12] MEDS ORDERED: GABAPENTIN 300 MG CAP ONE ×2 (07:58→20:57)
[2024-02-12] MEDS ORDERED: LOSARTAN 50 MG TAB ONE (08:00)
[2024-02-12] MEDS ORDERED: atenoloL 25 MG TAB ONE (08:00)
[2024-02-12] MEDS ORDERED: amLODIPine 5 MG TAB ONE (08:01)
[2024-02-12] MEDS ORDERED: MULTIVITAMINS, THERA 1 EACH TAB ONE (08:02)
[2024-02-12] MEDS ORDERED: HEPARIN SODIUM,PORCINE 5,000 UNIT/ML 1 ML VIAL ONE ×2 (08:03→20:58)
[2024-02-12] MEDS ORDERED: ATORVASTATIN 20 MG TAB ONE (08:03)
[2024-02-12] MEDS ORDERED: SENNOSIDES-DOCUSATE SODIUM 1 EACH TAB PO ONE ×2 (08:18)
[2024-02-12] MEDS ORDERED: POTASSIUM CHLORIDE ER 20 MEQ TAB.ER PO ONE ×2 (10:33)
[2024-02-13] MEDS ORDERED: HYDROcodone/APAP 5-325MG 1 EACH TAB ONE ×4 (00:52→09:17)
[2024-02-13] MEDS ORDERED: CYCLOBENZAPRINE 5 MG TAB ONE (03:12)
[2024-02-13] MEDS ORDERED: ACETAMINOPHEN TAB 325 MG TAB ONE ×4 (05:47→11:20)
[2024-02-13] MEDS ORDERED: CALCIUM CARBONATE 500 MG CHEWABLE PO ONE ×2 (05:47→11:19)
[2024-02-13] MEDS ORDERED: amLODIPine 5 MG TAB ONE (09:13)
[2024-02-13] MEDS ORDERED: ATORVASTATIN 20 MG TAB ONE (09:13)
[2024-02-13] MEDS ORDERED: SENNOSIDES-DOCUSATE SODIUM 1 EACH TAB PO ONE ×2 (09:13)
[2024-02-13] MEDS ORDERED: MULTIVITAMINS, THERA 1 EACH TAB ONE (09:14)
[2024-02-13] MEDS ORDERED: atenoloL 25 MG TAB ONE (09:14)
[2024-02-13] MEDS ORDERED: HEPARIN SODIUM,PORCINE 5,000 UNIT/ML 1 ML VIAL ONE (09:14)
[2024-02-13] MEDS ORDERED: GABAPENTIN 300 MG CAP ONE (09:14)
[2024-02-13] MEDS ORDERED: LOSARTAN 50 MG TAB ONE (09:14)
--- NOTE | 2024-03-08 16:16 | CT ---
Patient Iman Dewey ID [id number] Order # EXAMINATION TYPE: CT cervical spine wo con DATE OF EXAM: 02/10/2024 COMPARISON: No comparisons available, PACS downtime. HISTORY: Post surgery CT DLP: 435.8 mGycm CONTRAST: None CT of the cervical spine is performed in the axial plane at 2 mm thick sections. Reconstructed image s in the coronal, and sagittal plane are reviewed on the computer. No acute fractures are evident. There is posterior pedicle screws and fixation rods through the cervi kobi spine. Postsurgical soft tissue changes are evident. Drainage catheter is present on the left rosmery ining on the right side of the paraspinal region Vertebral body alignment is normal. C5-6 C6-7 disc space narrowing is present. Anterior vertebral body spurring is present C4-T1. Vertebral body heights are preserved. No spinal canal stenosis is evident Uncovertebral joint hypertrophy is present with foraminal stenosis C6-7 C5-6 on the left C4-5. IMPRESSION: 1. Postsurgical changes cervical spine. 2. Foraminal stenosis C4-5 through C6-7 discussed above.
== END 2024-02-13 15:26 | DRG 460 ==
LOC: DISRECOVER 13:51
PROVIDERS: ADMIT Orthopaedic Surgery; ATTEND Orthopaedic Surgery
PROC: 0RG2071 Fusion of 2 or more Cervical Vertebral Joints with Autologous Tissue Substitute, Posterior Approach, Posterior Column, Open Approach (ICD-10-PCS; 2024-02-09)
PROC: 0RG4071 Fusion of Cervicothoracic Vertebral Joint with Autologous Tissue Substitute, Posterior Approach, Posterior Column, Open Approach (ICD-10-PCS; 2024-02-09)
PROC: 00NW0ZZ Release Cervical Spinal Cord, Open Approach (ICD-10-PCS; 2024-02-09)
PROC: 00NX0ZZ Release Thoracic Spinal Cord, Open Approach (ICD-10-PCS; 2024-02-09)
PROC: 0RG6071 Fusion of Thoracic Vertebral Joint with Autologous Tissue Substitute, Posterior Approach, Posterior Column, Open Approach (ICD-10-PCS; principal; 2024-02-09 12:30)
DX: M48.02 Spinal stenosis, cervical region (principal); M47.12 Other spondylosis with myelopathy, cervical region; E78.2 Mixed hyperlipidemia; M47.22 Other spondylosis with radiculopathy, cervical region; E11.9 Type 2 diabetes mellitus without complications; M19.90 Unspecified osteoarthritis, unspecified site; G47.33 Obstructive sleep apnea (adult) (pediatric); I10 Essential (primary) hypertension; Z79.82 Long term (current) use of aspirin; Z79.899 Other long term (current) drug therapy